=== PATIENT | female | born 1945 | race Caucasian/White ===

== ENCOUNTER 2017-08-07 10:33 | Emergency (ER) | payer MEDICARE ==
[~2017-08-07] VITALS: Ht 160 cm; Wt 81.7 kg
[2017-08-07] MEDS ORDERED: ZESTRIL10 MG PO (10:54)
[2017-08-07] MEDS ORDERED: LASIX20 MG PO (10:55)
[2017-08-07] MEDS ORDERED: SINGULAIR10 MG PO (10:55)
[2017-08-07] MEDS ORDERED: LIPITOR20 MG PO (10:56)
== END 2017-08-07 11:19 | disposition home or self-care (01) ==
LOC: ED 10:33
PROC: 0HQ7XZZ Repair Abdomen Skin, External Approach (ICD-10-PCS; principal; 2017-08-07)
DX: Z48.815 Encounter for surgical aftercare following surgery on the digestive system (principal); I10 Essential (primary) hypertension; Z88.5 Allergy status to narcotic agent
CPT/HCPCS: 12002; 99282

== ENCOUNTER 2017-11-18 05:45 | Day surgery (SDC) | payer MEDICARE ==
[~2017-11-18] VITALS: Ht 160 cm; Wt 77.1 kg
[~2017-11-18 05:45] MED LIST: LASIX20 MG PO; LIPITOR20 MG PO; SINGULAIR10 MG PO; ZESTRIL10 MG PO
--- NOTE | 2017-11-18 09:13 | NUR ---
11/18/17 0913 Shilpa Driscoll 0909-PATIENT ARRIVED TO PACU ON 6L MASK O2 SAT 100% PATIENT REACTIVE EYES OPEN RR EVEN. SR. 4 LAP SITES TO ABDOMEN. PATIENT VERY DROWSY BACK TO SLEEP.
[2017-11-18] MEDS ORDERED: IBUPROFEN600 MG PO (09:29)
[2017-11-18] MEDS ORDERED: MAPAP325 MG PO (09:29)
[2017-11-18] MEDS ORDERED: HYDROCODON-ACE1 EA10 PO (09:29)
[2017-11-18] MEDS ORDERED: NORCO 5-325 TA1 EACH PO (10:28)
--- NOTE | 2017-11-18 11:18 | NUR ---
PT UP TO BR W/RN STANDBY. PT AMBULATES WELL AND DENIES DIZZINESS. PT VOIDS 200 ML CLEAR YELLOW URINE AND REQ DC HOME. DC INSTRUCTIONS GIVEN IN PRESENCE OF PATIENT'S DAUGHTER AND BOTH VERBALIZE UNDERSTANDING. PT DRESSING SELF IN PRESENCE OF DAUGHTER.
--- NOTE | 2017-11-18 20:48 | OR ---
[facility] [address], [place] [address] Signed DATE OF OPERATION: 11/18/2017 SURGEON: Fransisco Valerio MD PREOPERATIVE DIAGNOSES: 1. Chronic acalculous cholecystitis. 2. Obesity. 3. History of laparoscopic band procedure with explantation for malfunction or malposition. POSTOPERATIVE DIAGNOSES: 1. Chronic acalculous cholecystitis. 2. Obesity. 3. History of laparoscopic band procedure with explantation for malfunction or malposition. PROCEDURE PERFORMED: Laparoscopic cholecystectomy with attempted (failed) cholangiogram. ANESTHESIA: General endotracheal; Emanuel Mich DRY CHAIN OFFBEARER, and local 20 mL of 0.25% Marcaine with epinephrine. INDICATIONS FOR PROCEDURE: This 72-year-old white woman [place] She has undergone a laparoscopic band procedure in the past, which ultimately was explanted due to malposition (appeared to have slipped cephalad) and was causing a fair amount of problems. The patient is episodically bothered by right upper abdominal pain following meals, highly typical of biliary disease. Notably, she has undergone biliary evaluation a number of years ago showing an ejection fraction on CCK-HIDA test of 51% with reproduction of her symptoms, but did not proceed to cholecystectomy. She has persistent symptoms highly suggestive of biliary disease. A repeat ultrasound and subsequently a CCK-HIDA test was performed. The CCK-HIDA test ejection fraction was 75%. However, she had marked and severe reproduction of right upper abdominal pain symptoms, highly suggestive of biliary disease. Mindful of the ambiguity of her test findings in relation to her clinical symptoms, Electronically Signed By: FRANSISCO VALERIO MD 11/18/17 2048 PATIENT NAME: MADISON VILLAR OPERATIVE REPORT DATE OF : 41 REPORT #: [id number] PHYSICIAN: FRANSISCO VALERIO MD PCP: NO PRIMARY CARE PHYSICIAN REPORT IS CONFIDENTIAL AND NOT TO BE RELEASED WITHOUT AUTHORIZATION [facility] [address], [place] [address] Signed consideration was made for cholecystectomy. The laparoscopic approach would be preferred of course. She has fair number of scars in her abdominal wall related to prior operation including lap band and an open procedure might be required. The risks of bleeding, infection, bile duct injury, need for open procedure, and other unforeseen complications were reviewed in detail. She understands also that she may have no benefit from the operation at all, though I suspect she will. Understands that, she wished to proceed. FINDINGS: As expected, there were fair amount of intraabdominal adhesions. There was some prosthetic mesh in the abdominal wall as well that was noted. Entry point to the abdomen was in the infraumbilical site. Typical trocar placement was undertaken as well. The liver had marked fatty infiltration, but no cirrhotic changes by any means, gallbladder appeared to be chronically inflamed. Once excised, the bile had a few small green like sands of stone-like material or sand, and the mucosa was chronically inflamed and thinned, but there is certainly no evidence of malignancy. The cystic duct was rather friable and multiple attempts were made to provide for cholangiogram, but distraction of the duct ultimately occurred and further attempts at cholangiography were unsuccessful. Therefore, cholangiogram was not performed as I had hoped and is as my usual practice. It was noted that free flow of saline into the biliary tree was accomplished prior to disruption of the duct and therefore, no physical impediment to flow was noted. DESCRIPTION OF PROCEDURE: The patient was brought to the operating room, given a general endotracheal anesthetic. Preoperative antibiotic Ancef was given. Sequential compression device stockings were used and heparin subcutaneously administered. The obese abdomen was prepared with chlorhexidine solution and draped sterilely. An infraumbilical incision was made and using an open Hni cannula technique, the abdomen was entered. There were multiple omental adhesions in the region of the umbilicus. A window was created with the examining finger in the upper aspect to the left allowing for placement of a Nhi cannula with the inflatable balloon. Pneumoperitoneum was achieved to a level of 14 mmHg. The patient became somewhat bradycardic and on that basis, decompression of the abdomen was undertaken. Appropriate medications were given and no further problems with bradycardia were noted. The Nhi cannula was once again manipulated into appropriate position, pneumoperitoneum achieved. Laparoscope was passed into the abdomen. There were many adhesions in the lower abdomen. The upper abdomen was reasonably free. Omentum covered the gallbladder initially was obscured from view. The liver was quite clearly fatty infiltrated. Electronically Signed By: FRANSISCO VALERIO MD 11/18/178 PATIENT NAME: MADISON VILLAR OPERATIVE REPORT DATE OF : 41 REPORT #: [id number] PHYSICIAN: FRANSISCO VALERIO MD PCP: NO PRIMARY CARE PHYSICIAN REPORT IS CONFIDENTIAL AND NOT TO BE RELEASED WITHOUT AUTHORIZATION [address] [address] Signed Three additional trocars were placed in the usual configuration in the subxiphoid, right midclavicular, and right anterior axillary line. Gallbladder was revealed and elevated cephalad and found to be chronically inflamed, but there was no sign of severe acute inflammation or other abnormality. The liver was indeed with fatty infiltration, but no cirrhotic changes were noted. The infundibulum was grasped and gallbladder retracted laterally and using blunt and electrocautery dissection, the triangle of Calot was dissected free ultimately identifying well the dominant cystic artery, which was doubly clipped in the cystic duct itself. The gallbladder wall itself was rather thin as was the cystic duct. When the cystic duct was well-identified ascertaining the critical view of safety, a clip was applied across the gallbladder cystic duct junction. A transverse choledochotomy was made high in the cystic duct. There is egress of what appeared to be somewhat turbid bile. Manipulation of the Rivera type cholangiocatheter into the cystic duct was accomplished, but flow was not forthcoming in the device and it was removed and found to have an uncorrectable kink in the upper portion of the catheter, even though it had been flushed previously. One cannot explain the actual cause of the problem. The new catheter was obtained and the cystic duct choledochotomy extended a bit to allow for accommodation of the catheter. It flowed freely and plans were then made in pulling the fluoroscopy unit into position, when disruption of the cystic duct occurred at the choledochotomy site. Vexing as it was, the cystic duct was gently grasped and the catheter attempted to be manipulated into place, but in time, it was clear that the thinness of the duct and the tenuous nature of the surrounding soft tissue and so forth precluded any further attempts at cholangiogram and therefore, the cystic duct was gently elevated and doubly clipped. A PDS ligature was applied (Endoloop) to cuff and at least secure the duct as well. There was no sign of ongoing bile leak or other problem. The gallbladder was then dissected free in a retrograde fashion using electrocautery. It was placed in an endobag and extracted through the epigastric port. The gallbladder was opened on the back table and found to have a few grainy bits of stone debris, no sign of cholesterolosis, particularly a thinned out chronically inflamed mucosa and no sign of neoplasm. Irrigation was then undertaken in the subhepatic space. There was no evidence of bile leak, bleeding, or other problems. Excess irrigation fluid was suctioned free and the upper abdominal trocars were removed under direct visualization showing no sign of bleeding. The infraumbilical fascial incision was reapproximated with interrupted #0 Vicryl suture. Notably, there was a prosthetic mesh noted in this area as well from prior hernia repair. The skin was closed with interrupted #3-0 Vicryl. Steri-Strips were applied. Extubation of the patient was accompanied by fair amount of straining and coughing, but Electronically Signed By: FRANSISCO VALERIO MD 11/18/172047 PATIENT NAME: MADISON VILLAR OPERATIVE REPORT DATE OF : 41 REPORT #: [id number] PHYSICIAN: FRANSISCO VALERIO MD PCP: NO PRIMARY CARE PHYSICIAN REPORT IS CONFIDENTIAL AND NOT TO BE RELEASED WITHOUT AUTHORIZATION [facility] [address], [place] [address] Signed there was no obvious problem with the umbilical wound as pressure was applied during that episode. She was ultimately taken to recovery room in good condition and suffered no known complications. Sponge, needle, and instrument counts were reported as correct x3. Fransisco Valerio MD JM/MODL /[id number] cc: Amy Gonzales [facility] [address] [place] [address] Copies: ~ Electronically Signed By: FRANSISCO VALERIO MD 11/18/17 2048 PATIENT NAME: JIANMADISON OPERATIVE REPORT DATE OF : 41 REPORT #: [id number] PHYSICIAN: FRANSISCO VALERIO MD PCP: NO PRIMARY CARE PHYSICIAN REPORT IS CONFIDENTIAL AND NOT TO BE RELEASED WITHOUT AUTHORIZATION
== END 2017-11-18 11:25 | disposition home or self-care (01) ==
LOC: DS 05:45
PROVIDERS: Surgery
PROC: 0FT44ZZ Resection of Gallbladder, Percutaneous Endoscopic Approach (ICD-10-PCS; principal; 2017-11-18 06:45)
DX: K81.1 Chronic cholecystitis (principal); E66.3 Overweight; I10 Essential (primary) hypertension; E78.00 Pure hypercholesterolemia, unspecified; Z68.32 Body mass index [BMI] 32.0-32.9, adult; Z79.899 Other long term (current) drug therapy; Z98.84 Bariatric surgery status; Z87.891 Personal history of nicotine dependence
CPT/HCPCS: 00790; J0360; J0690; J1644; J1885; J2250; J2405; J2704; J2765; J3010; J7120

== ENCOUNTER 2018-08-02 09:44 | Day surgery (SDC) | payer MEDICARE ==
[~2018-08-02] VITALS: Ht 160 cm; Wt 87.1 kg
[~2018-08-02 09:44] MED LIST changes: +HYDROCODON-ACE1 EA10 PO; +IBUPROFEN600 MG PO; +MAPAP325 MG PO; +NORCO 5-325 TA1 EACH PO
[2018-08-02] MEDS ORDERED: ACID CONTROL150 MG PO (10:04)
[2018-08-02] MEDS ORDERED: PROZAC20 MG PO (10:04)
[2018-08-02] MEDS ORDERED: OMEPRAZOLE20 MG PO (10:04)
--- NOTE | 2018-08-02 11:53 | NUR ---
08/02/18 1153 Shilpa Driscoll 1148-PATIENT ARRIVED TO PACU ON 3L NC PATIENT REACTIVE TO VOICE SLIGHTLY OPENS EYES. IVF INFUSING. RR EVEN. 1153-PATIENT REPOSITIONED SELF TO BACK ENCOURAGED TO PASS GAS
--- NOTE | 2018-08-02 15:31 | OR ---
[facility] [address] [place], [place] [address] Signed DATE OF OPERATION: 08/02/2018 SURGEON: Fransisco Valerio MD PREOPERATIVE DIAGNOSIS: Sensation of incomplete fecal evacuation. POSTOPERATIVE DIAGNOSES: 1. Extensive diverticulosis, sigmoid and left colon. 2. Adenomatous polyp at 80 cm excised. 3. Multiple hyperplastic polyps of rectum excised. 4. Probable rectocele. PROCEDURE: Total colonoscopy to cecum with cold morcellation polypectomy at 80 cm and multiple small polypectomies of rectum. ANESTHESIA: Intravenous sedation, fentanyl 100 mcg, Versed 5 mg. INDICATION: A 73-year-old white woman is a patient of Dr. Courtney Beltran. She has had complaints of incomplete fecal evacuation. She is here for colonoscopy on that basis. The risks of bleeding, infection, and perforation related to colonoscopy was reviewed with her. She understands and wished to proceed. FINDINGS: The prep was good. Complete colonoscopy was undertaken of the cecum without question. She had numerous diverticula of the sigmoid and left colon. Additionally, she had an adenomatous appearing polyp at about 80 cm, for which complete excision was undertaken with cold morcellation technique. Additionally, she had multiple small hyperplastic polyps of the low rectum, four or five of them excised completely with cold morcellation technique. DESCRIPTION OF PROCEDURE: The patient was brought to the endoscopy suite and placed in lateral decubitus position given intravenous sedation to the point of slurred speech and nystagmus. Digital rectal examination was undertaken showing anatomy suggestive of rectocele. An Olympus video colonoscope was passed in the rectum and manipulated throughout the Electronically Signed By: FRANSISCO VALERIO MD 08/02/18 1531 PATIENT NAME: MADISON VILLAR OPERATIVE REPORT DATE OF : 41 REPORT #: [id number] PHYSICIAN: FRANSISCO VALERIO MD PCP: COURTNEY BELTRAN MD REPORT IS CONFIDENTIAL AND NOT TO BE RELEASED WITHOUT AUTHORIZATION [facility] [address], [place] [address] Signed colon noting multiple diverticula of the sigmoid and left colon. The scope was ultimately advanced to the cecum. Ileocecal valve and appendiceal orifice were normal. The scope was withdrawn from that point and examination undertaken. At approximately 80 cm from the anal verge was a somewhat linear adenomatous appearing polyp. This was excised with cold morcellation technique after imaging with narrow band imaging technique. Complete ablation of the polyp was accomplished with cold morcellation technique. The scope was further withdrawn and on retroflexed view, multiple small probably hyperplastic polyps of the rectum were noted. These were excised with cold morcellation technique 5 in total. The scope was then removed and the patient was taken to recovery room in good condition. CONCLUDING DIAGNOSES: 1. Hyperplastic polyp of the rectum. 2. Adenomatous polyp at 80 cm. 3. Numerous diverticula. 4. Probably rectocele accounting for her symptoms. PLAN: She will return to the ongoing care of Dr. Beltran. Consideration might be made for evaluation by artist's manager for rectocele considerations. MD GABY Jones/ELIU /[id number] cc: Courtney Beltran MD Copies: ~ Electronically Signed By: FRANSISCO VALERIO MD 08/02/18 1531 PATIENT NAME: MADISON VILLAR OPERATIVE REPORT DATE OF : 41 REPORT #: [id number] PHYSICIAN: FRANSISCO VALERIO MD PCP: COURTNEY BELTRAN MD REPORT IS CONFIDENTIAL AND NOT TO BE RELEASED WITHOUT AUTHORIZATION
[2018-08-15] MEDS ORDERED: LISINOPRIL-HCT1 EACH PO (08:22)
[2018-08-15] MEDS ORDERED: MONTELUKAST SOD10 MG PO (08:23)
[2018-08-15] MEDS ORDERED: LIPITOR10 MG PO (08:24)
[2018-08-15] MEDS ORDERED: TIMOLOL 0.5%-DO10 ML OP (08:25)
[2018-08-15] MEDS ORDERED: LATANOPROST 0.7.5 ML OP (08:25)
== END 2018-08-02 12:20 | disposition home or self-care (01) ==
LOC: DS 09:44 → OPS 09:44 → DS 11:00 → OPS 12:20
PROVIDERS: Surgery
PROC: 0DBP8ZZ Excision of Rectum, Via Natural or Artificial Opening Endoscopic (ICD-10-PCS; 2018-08-02)
PROC: 0D5E8ZZ Destruction of Large Intestine, Via Natural or Artificial Opening Endoscopic (ICD-10-PCS; principal; 2018-08-02 11:00)
DX: D12.6 Benign neoplasm of colon, unspecified (principal); K62.1 Rectal polyp; K57.30 Diverticulosis of large intestine without perforation or abscess without bleeding; I11.0 Hypertensive heart disease with heart failure; I50.22 Chronic systolic (congestive) heart failure; E78.49 Other hyperlipidemia; J43.9 Emphysema, unspecified; K21.9 Gastro-esophageal reflux disease without esophagitis; Z88.5 Allergy status to narcotic agent; Z79.899 Other long term (current) drug therapy; Z98.890 Other specified postprocedural states; Z90.49 Acquired absence of other specified parts of digestive tract
CPT/HCPCS: 88305; 99153; G0500; J0690; J2250; J3010; J7120